=== PATIENT | male | born 1940 | race Caucasian/White ===

== ENCOUNTER 2020-07-30 10:16 | Outpatient (CLI) | payer MEDICARE, OTHER | END 2020-07-30 10:17 | disposition home or self-care (01) | LOC: TBSIIMAG 10:16 → CT 10:17 | PROVIDERS: ATTEND Neurological Surgery | DX: M50.11 Cervical disc disorder with radiculopathy, high cervical region (principal); M47.22 Other spondylosis with radiculopathy, cervical region; M43.17 Spondylolisthesis, lumbosacral region; M48.07 Spinal stenosis, lumbosacral region; M48.061 Spinal stenosis, lumbar region without neurogenic claudication; M48.05 Spinal stenosis, thoracolumbar region; M48.02 Spinal stenosis, cervical region; Z98.1 Arthrodesis status | CPT/HCPCS: 72131; 72141 ==

== ENCOUNTER 2020-08-29 14:52 | Outpatient (CLI) | payer MEDICARE, OTHER | END 2020-08-29 14:53 | disposition home or self-care (01) | LOC: TBSIIMAG 14:52 → BICMRI 14:53 | PROVIDERS: ATTEND Neurological Surgery | DX: M47.26 Other spondylosis with radiculopathy, lumbar region (principal); M47.817 Spondylosis without myelopathy or radiculopathy, lumbosacral region; M47.815 Spondylosis without myelopathy or radiculopathy, thoracolumbar region; Z98.890 Other specified postprocedural states | CPT/HCPCS: 72158; 82565 ==

== ENCOUNTER 2020-09-11 11:10 | Outpatient (CLI) | payer MEDICARE, OTHER ==
[2020-09-11 12:56] LABS: Anion Gap 17 mmol/L (10-20); BUN (Urea Nitrogen) 12 mg/dL (8.4-25.7); Calc. Creatinine Clearance 0 mL/min (70-130); Calcium 9.9 mg/dL (7.8-10.44); Carbon Dioxide 26 mmol/L (23-31); Chloride 97 mmol/L (98-107); Glucose 178 mg/dL (83-110); Potassium 4.7 mmol/L (3.5-5.1); Sodium 135 mmol/L (136-145)
[2020-09-11 13:03] LABS: Hemoglobin 12.9 g/dL (13.5-17.5); Mean Corpuscular Volume 96.9 fl (81.2-95.1); Mean Platelet Volume 10.9 fl (7.4-10.4); Platelet Count 219 10x3/uL (150-450); RBC Distribution Width 13.6 % (11.5-14.5); Red Blood Cell (RBC) Count 3.91 10x6/uL (4.32-5.72); White Blood Cell (WBC) Count 5.6 10x3/uL (3.5-10.5)
== END 2020-09-11 11:11 | disposition home or self-care (01) ==
LOC: LABBT 11:10
PROVIDERS: ATTEND Neurological Surgery
DX: Z01.818 Encounter for other preprocedural examination (principal); M54.12 Radiculopathy, cervical region
CPT/HCPCS: 80048; 85027; 93005; 93010

== ENCOUNTER 2020-09-16 05:48 | Day surgery (SDC) | payer MEDICARE, OTHER ==
[2020-09-12 14:49] VITALS: BMI 31.1
[2020-09-16] MEDS ORDERED: Thrombin 5000 UNITS/5 ML VIAL ONE (06:11)
[2020-09-16] MEDS ORDERED: Fentanyl 100 MCG/2 ML VIAL ONE (06:30)
== END 2020-09-16 09:00 | disposition home or self-care (01) ==
LOC: SDC 05:48
PROVIDERS: ATTEND Neurological Surgery
DX: M54.12 Radiculopathy, cervical region (principal); M48.02 Spinal stenosis, cervical region; E78.00 Pure hypercholesterolemia, unspecified; M19.90 Unspecified osteoarthritis, unspecified site; E11.9 Type 2 diabetes mellitus without complications; M10.9 Gout, unspecified; I10 Essential (primary) hypertension; Z53.09 Procedure and treatment not carried out because of other contraindication; Z86.73 Personal history of transient ischemic attack (TIA), and cerebral infarction without residual deficits; Z79.02 Long term (current) use of antithrombotics/antiplatelets; Z79.82 Long term (current) use of aspirin; Z79.899 Other long term (current) drug therapy; Z91.041 Radiographic dye allergy status
CPT/HCPCS: J0690; J3010

== ENCOUNTER 2023-04-20 12:08 | Outpatient (CLI) | payer MEDICARE, OTHER ==
[2023-04-20 13:15] LABS: Hematocrit 39.6 % (38.8-50.0); Hemoglobin 13.3 g/dL (13.5-17.5); Mean Corpuscular HGB CONC 33.6 g/dL (32.0-36.0); Mean Corpuscular Hemoglobin 31.8 pg (27.0-33.0); Mean Corpuscular Volume 94.7 fl (81.2-95.1); Platelet Count 180 10x3/uL (150-450); RBC Distribution Width 13.1 % (11.5-14.5); Red Blood Cell (RBC) Count 4.18 10x6/uL (4.32-5.72); White Blood Cell (WBC) Count 6.4 10x3/uL (3.5-10.5)
[2023-04-20 13:32] LABS: Anion Gap 15 mmol/L (10-20); BUN (Urea Nitrogen) 11 mg/dL (8.4-25.7); Calc. Creatinine Clearance 0 mL/min (70-130); Calcium 9.4 mg/dL (7.8-10.44); Carbon Dioxide 26 mmol/L (23-31); Chloride 103 mmol/L (98-107); Estimated GFR 70; Glucose 164 mg/dL (83-110); Potassium 4.1 mmol/L (3.5-5.1); Sodium 140 mmol/L (136-145)
== END 2023-04-20 12:09 | disposition home or self-care (01) ==
LOC: LABBT 12:08
PROVIDERS: ATTEND Orthopaedic Surgery
DX: Z01.818 Encounter for other preprocedural examination (principal)
CPT/HCPCS: 80048; 85027; 93005; 93010

== ENCOUNTER 2023-04-22 06:08 | Day surgery (SDC) | payer MEDICARE, OTHER ==
[2023-04-20 09:36] VITALS: BMI 30.1
[2023-04-22] MEDS ORDERED: Sodium Chloride 0.9% 100 ML ONE (06:35)
[2023-04-22] MEDS ORDERED: CEFAZOLIN 2 GM VIAL ONE (06:35)
[2023-04-22] MEDS ORDERED: Lidocaine 1% MPF 2 ML VIAL ONE (06:35)
[2023-04-22] MEDS ORDERED: Lidocaine 2% PF 100 mg/5 ml Syringe ONE (06:43)
[2023-04-22] MEDS ORDERED: fentaNYL PF 100 MCG/2 ML SYRINGE ONE (06:43)
[2023-04-22] MEDS ORDERED: Dexamethasone 20 MG/5 ML VIAL ONE (06:43)
[2023-04-22] MEDS ORDERED: Ondansetron PF 4 MG/2 ML Vial ONE (06:43)
[2023-04-22] MEDS ORDERED: Midazolam HCl 2 mg/2 ml Vial ONE (06:44)
[2023-04-22] MEDS ORDERED: ePHEDrine Sulfate 50 MG/10 ML VIAL ONE (06:44)
[2023-04-22] MEDS ORDERED: PROPOFOL 20 ML ONE (06:44)
[2023-04-22] MEDS ORDERED: Lidocaine 2% 6 ML (Jelly) SYR ONE (06:45)
[2023-04-22] MEDS ORDERED: Bupivacaine PF 0.5% 30 ML VIAL ONE (07:21)
[2023-04-22] MEDS ORDERED: EPINEPHrine 1 MG/ML VIAL ONE (07:21)
[2023-04-22] MEDS ORDERED: hydrALAZINE 20 MG/ML VIAL ONE (09:03)
== END 2023-04-22 10:42 | disposition home or self-care (01) ==
LOC: SDC 06:08
PROVIDERS: ATTEND Orthopaedic Surgery
PROC: 0SBD4ZZ Excision of Left Knee Joint, Percutaneous Endoscopic Approach (ICD-10-PCS; principal; 2023-04-22)
DX: S83.242A Other tear of medial meniscus, current injury, left knee, initial encounter (principal); M23.322 Other meniscus derangements, posterior horn of medial meniscus, left knee; I25.10 Atherosclerotic heart disease of native coronary artery without angina pectoris; E11.9 Type 2 diabetes mellitus without complications; I10 Essential (primary) hypertension; Z86.73 Personal history of transient ischemic attack (TIA), and cerebral infarction without residual deficits; Z98.890 Other specified postprocedural states; Z87.891 Personal history of nicotine dependence; Z91.041 Radiographic dye allergy status; X58.XXXA Exposure to other specified factors, initial encounter
CPT/HCPCS: 29881; 82962; J0171; J0360; 36416; J0665; J1100; J2001; J2250; J2405; J2704; J3490